=== PATIENT | female | born 1940 | race Caucasian/White ===

== ENCOUNTER → 2016-07-08 | Outpatient (CLI) | payer OTHER | LOC: LAB 09:25 | PROVIDERS: ATTEND Physician Assistant Medical | DX: N30.01 Acute cystitis with hematuria (principal); R30.0 Dysuria; R82.99 Other abnormal findings in urine | CPT/HCPCS: 87077; 87088; 87186 ==

== ENCOUNTER → 2016-10-23 | Outpatient (CLI) | payer OTHER | LOC: LAB 09:38 | PROVIDERS: ATTEND Physician Assistant Medical | DX: R30.0 Dysuria (principal); M79.641 Pain in right hand; R82.99 Other abnormal findings in urine | CPT/HCPCS: 85652; 86038; 87077; 87088; 87186 ==

== ENCOUNTER → 2017-01-05 | Outpatient (CLI) | payer OTHER ==
[2017-01-05 15:56] LABS: BUN/CREATININE RATIO 34.44 (6-20); CALCIUM 9.3 mg/dL (8.7-10.7)
== END ==
LOC: LAB 10:19
PROVIDERS: ATTEND Physician Assistant Medical
DX: R80.9 Proteinuria, unspecified (principal); I10 Essential (primary) hypertension
CPT/HCPCS: 80048

== ENCOUNTER 2018-06-15 14:04 | Inpatient (IN) ==
[2018-06-15] MEDS ORDERED: ASPIRIN 81 MG (BABY) CHEWABLE TABLET PO ONE (14:35)
--- NOTE | 2018-06-15 14:39 | EKG ---
[address] [address] Measurements Intervals [place] Rate: 54 P: -20 IN: 194 QRS: -56 QRSD: 123 T: 54 QT: 462 QTc: 447 Interpretive Statements SINUS BRADYCARDIA LEFT ANTERIOR HEMIBLOCK INTRAVENTRICULAR CONDUCTION DELAY No previous ECG available for comparison Electronically Signed On 06-15-18 17:17:59 MST by Vikas Means [email or web address]
--- NOTE | 2018-06-15 14:41 | PDOC ---
Chest Pain HPI - General Chief Complaint: Chest Pain Stated Complaint: SOB, CHEST PAIN Date Seen by Provider: 06/15/18 Time Seen by Provider: 14:19 Source: Patient Exam Limitations: POSITIVE: No limitations Treatment Prior to Arrival: REPORTS: Aspirin (patient took one baby aspirin prior to arrival) Nurse's Notes Reviewed & Considered: Yes - History of Present Illness Initial Comments: Patient presents to ED with complaint of shortness of breath and chest pains. Patient states her symptoms have been going on for 2 days. Her main complaint is shortness of breath and this has been constant. Her chest pains are intermittent and lasting seconds to minutes. She had one episode of pain earlier today. Denies associated fever. Denies cough. 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 Reports recently being treated with a zpack which she finished 2 days ago. She did take one tablet of aspirin earlier today. - Patient Home Medications Home Medications: Home Medications Aspirin 81 mg PO DAILY tab 12/14/12 Allopurinol 1 tab PO QD PRN tab 12/18/15 levothyroxine 150 mcg tablet 150 mcg PO QDAY #90 tab 11/26/17 atorvastatin 40 mg tablet 40 mg PO QHS tab 01/12/18 meloxicam 7.5 mg tablet 7.5 mg PO DAILY #30 tab 01/12/18 oxybutynin chloride ER 5 mg tablet,extended release 24 hr 5 mg PO QDAY #30 tab 01/12/18 paroxetine 10 mg tablet 10 mg PO QDAY 05/18/18 losartan 100 mg tablet 100 mg PO QDAY #30 tab 06/07/18 flurazepam 15 mg capsule 15 mg PO QHS PRN #30 cap 06/10/18 Metoprolol Tartrate 12.5 mg PO BID 06/15/18 - Patient Allergies Allergies/Adverse Reactions: Allergies Allergy/AdvReac Type Severity Reaction Status Date / Time sulfamethoxazole Allergy ITCHING Verified 06/15/18 14:07 [From Bactrim] trimethoprim [From Bactrim] Allergy ITCHING Verified 06/15/18 14:07 Past Medical History - heen HEENT History: Cataracts, Dentures/Partials Cardiovascular History: Hypertension, Hyperlipidemia Additional Cardiovasular History: HAD CHEST PAIN IN 2005/GOT STENT. NO FURTHER EPISODES OF C.P. Respiratory History: Sleep Apnea, Home CPAP Use Additional Respiratory History: HAD HOME OXYGEN AT NIGHT BUT WAS TAKEN OFF [address] LEMA/PINKY. Gastrointestinal History: Denies History Genitourinary History: Denies History Additional Genitourinary History: TOO MUCH PROTEIN IN BODY. Endocrine History: Hypothyroidism, Other (please comment) Additional Endocrine History: GRAVES DISEASE Musculoskeletal History: Arthritis, Carpal Tunnel Prosthesis or Implant: No Neurological History: Frequent Headaches Blood Disorders: Denies History Psychiatric History: Depression Additional Psychiatric History: WAS ON DEPRESSION MEDICATION UNTIL 2009. THEN GOT SICK AND WAS TAKEN OFF MANY OF HER MEDICATION History of Sexually Transmitted Diseases: No Cancer History: Denies History History of MDRO: No History of Other Communicable Diseases: No Alcohol Use: Rarely In the Past 12 Months, Have Used or Abuse Any Substance: None Previous Surgical History: Yes Type / Date of Surgery: C-SECTIONS X3, MIKE, RUPTURED LIVER, APPY, TONSILS, BILAT CTR, CATARACTS, HEART STENTS, PARTIAL HYST. Anesthesia Reactions: Yes (NAUSEA) Malignant Hyperthermia: No Chest Pain Progress - Results Reviewed by me Xrays/CTs/US Reviewed by me: Yes Discussed with Radiologist: No Radiology Findings: CT chest shows NO PE, CHF exacerbation, pulmonary artery hypertension, small bilateral pleural effusions, coronary artery disease with dense calcifications in LAD & Left circumflex. Lab Results Reviewed by Me: Yes CBC and BMP: 06/15/18 14:30 06/15/18 14:30 Lab Results:: Laboratory Results 06/15/18 06/15/18 06/15/18 14:20 14:30 14:30 WBC 6.21 RBC 4.72 Hgb 14.5 Hct 44.1 MCV 93.4 MCH 30.7 MCHC 32.9 L RDW Std Deviation 51.2 H RDW Coeff of Kavon 15.1 H Plt Count 225 MPV 10.4 Immature Gran % (Auto) 0.2 Neut % (Auto) 64.3 Lymph % (Auto) 24.8 [place]lin % (Auto) 6.8 Eos % (Auto) 3.4 Baso % (Auto) 0.5 Immature Gran # (Auto) 0.01 Neut # (Auto) 4.00 Lymph # (Auto) 1.54 Hamlin # (Auto) 0.42 Eos # (Auto) 0.21 Baso # (Auto) 0.03 WBC Morphology Comment Normal morphology Plt Morphology Comment Normal morphology RBC Morph Comment Normal morphology PT 11.8 H INR 1.14 D-Dimer 0.72 H VBG pH 7.45 H VBG pCO2 41 L VBG HCO3 28 H VBG Base Excess 4 H Sodium Potassium Chloride Carbon Dioxide Anion Gap BUN Creatinine BUN/Creatinine Ratio Glucose Calculated Osmolality Calcium Total Bilirubin AST ALT Alkaline Phosphatase CK-MB (CK-2) Troponin I C-Reactive Protein NT-Pro-B Natriuret Pep Total Protein Albumin Globulin Albumin/Globulin Ratio 06/15/18 06/15/18 06/15/18 14:30 14:30 14:30 WBC RBC Hgb Hct MCV MCH MCHC RDW Std Deviation RDW Coeff of Kavon Plt Count MPV Immature Gran % (Auto) Neut % (Auto) Lymph % (Auto) Hamlin % (Auto) Eos % (Auto) Baso % (Auto) Immature Gran # (Auto) Neut # (Auto) Lymph # (Auto) Hamlin # (Auto) Eos # (Auto) Baso # (Auto) WBC Morphology Comment Plt Morphology Comment RBC Morph Comment PT INR D-Dimer VBG pH VBG pCO2 VBG HCO3 VBG Base Excess Sodium 138 Potassium 4.7 Chloride 105 Carbon Dioxide 30 Anion Gap 3 L BUN 16 Creatinine 0.6 BUN/Creatinine Ratio 26.66 H Glucose 89 Calculated Osmolality 285.0 Calcium 9.0 Total Bilirubin 1.0 AST 55 H ALT 53 H Alkaline Phosphatase 64 CK-MB (CK-2) 1.27 Troponin I < 0.012 C-Reactive Protein < 0.5 NT-Pro-B Natriuret Pep 2170 H Total Protein 6.5 Albumin 3.7 Globulin 2.8 Albumin/Globulin Ratio 1.30 EKG Interpreted/Reviewed By Me:: Yes EKG Interpretation:: POSITIVE: Abnormal EKG (Sinus bradycardia at 54 bpm with left axis deviation, Q waves in leads V1 & V2), Previous EKG Reviewed - Patient's Progress Pain Medication Addressed: POSITIVE: Not Applicable School/Work Release Addressed: POSITIVE: Not Applicable Re-Examine Comment: CXR was obtained and shows right sided pleural effusion, cardiomegaly, elevated right hemidiaphragm with questionable right hilar mass. CT recommended. Patient also has elevated d.dimer therefore will get chest CT. Re-Examine Comment: Patient given oral nitroglycerin and this helped with her hypertension. She developed a headache from this medication and was given tylenol for her headache. Re-Examine Comment: Patient given lasix for her CHF exacerbation and was placed on oxygen because her oxygen saturations were 88-90 on room air. I recommended she be admitted for diuresis and oxygen therapy. Patient's case was discussed with Dr. Gamble and admitted to medical service in stable and unchanged condition. Status: POSITIVE: Unchanged MDM / ED Course: Patient presents to ED with complaints of shortness of breath, elevated blood pressure, and headache. Patient did take her blood pressure medications this morning. Patient does not wear oxygen at home. She does not smoke but used to smoke and has had longstanding history of 2nd hand smoke exposure. Gave patient aspirin for her chest pain, which she currently doesn't have but did have momentarily earlier today. She did take 81 mg of aspirin earlier today. She is most worried about her elevated blood pressure and her difficulty breathing. Quality Measure Initiative: CP/AMI: POSITIVE: EKG, ASA - Consult Consult (If Yes, Name of Consulting MD & Time Called): Yes (Dr. Gamble) Consulting MD will see pt:: POSITIVE: [facility] Admit Counseled: POSITIVE: Patient, Family, RE: Lab Results, RE: Radiology Results, RE: DX Patient Care Time - Estimated PCT Patient Care Time (In Minutes): 80 Vital Signs - Recent Vital Signs Vital Signs: Vital Signs (Last 8 hours) Temp Pulse Resp BP Pulse Ox 06/15/18 16:46 51 L 17 201/75 98 06/15/18 16:14 50 L 16 205/85 96 06/15/18 15:05 17 211/79 94 06/15/18 14:30 97.6 F 55 L 20 152/110 90 - VS Reviewed Vital Signs Reviewed: Yes Discharge Clinical Impression: CHF exacerbation, Hypertensive urgency, Headache, Dyspnea, Acute hypoxemic respiratory failure Discharge Disposition: Admit to Inpatient Condition: Fair Follow Up With: MUSHTAQ ARAIZA [Primary Care Provider] - Care Transferred To: Dr. Gamble Date Decision to Admit to Inpatient: 06/15/18 Time Decision to Admit to Inpatient: 17:35
[2018-06-15 14:43] LABS: BASOPHILS # (AUTO) 0.03 10*3/UL; BASOPHILS % (AUTO) 0.5 % (0-1); EOSINOPHILS # (AUTO) 0.21 10*3/UL; EOSINOPHILS % (AUTO) 3.4 % (0-8); Hematocrit [HCT] 44.1 % (37.0-47.0); Hemoglobin [HGB] 14.5 g/dL (12.0-16.0); LYMPHOCYTES # (AUTO) 1.54 10*3/uL; MEAN CORPUSCULAR HEMOGLOBIN 30.7 PG (27-31); MEAN CORPUSCULAR HGB CONC 32.9 g/dL (33-37); MEAN CORPUSCULAR VOLUME 93.4 FL (81-99); MEAN PLATELET VOLUME 10.4 FL (7.4-12.2); MONOCYTES # (AUTO) 0.42 10*3/UL (0.3-0.8); MONOCYTES % (AUTO) 6.8 % (5-15); NEUTROPHILS % (AUTO) 64.3 % (50-80); RED BLOOD COUNT 4.72 10^6/uL (4.20-5.40)
[2018-06-15 14:46] LABS: PLATELET MORPHOLOGY COMMENT NORMAL MORPHOLOGY (NORM); RBC MORPHOLOGY COMMENT NORMAL MORPHOLOGY (NORM); WBC MORPHOLOGY COMMENT NORMAL MORPHOLOGY (NORM)
[2018-06-15 14:52] LABS: BLOOD UREA NITROGEN 16 mg/dL (7-22); BUN/CREATININE RATIO 26.66 (6-20); SERUM ALBUMIN 3.7 g/dL (3.5-4.8)
[2018-06-15 15:19] LABS: VENOUS PH 7.45 (7.32-7.42)
[2018-06-15] MEDS ORDERED: NITROGLYCERIN 0.4 MG SL TAB (BOTTLE OF 3) SL ONE (15:20)
[2018-06-15] MEDS ORDERED: ACETAMINOPHEN 500 MG TABLET PO ONE (15:34)
--- NOTE | 2018-06-15 16:15 | DI ---
AP CHEST X-RAY, 06/15/2018 2:36 PM : Clinical History: Chest pain. Previous Exam: None at this facility. Soft Tissues: No acute soft tissue abnormality. Bones: Normal. Heart: There is cardiomegaly without CHF. Lungs: The right diaphragm is elevated and there is fluid in the minor fissure. Right lower lobe atel ectasis is present. Mediastinum: There is prominence of the right hilum and a hilar mass cannot be excluded. Nodules: No pulmonary nodules. Reading: Small right pleural effusion. Elevated right diaphragm with questionable right hilar mass. A CT scan with IV contrast is recommended to evaluate the right hilum, since a mass could involve the right phr enic nerve.
--- NOTE | 2018-06-15 17:22 | DI ---
CT CHEST SCAN WITH IV CONTRAST, 06/15/2018 4:12 PM : Clinical History: Dyspnea. Elevated D-dimer test. Hypoxia. Abnormal chest x-ray. Previous Exam: None at this facility. Technique: Scans from base of neck to lung bases with IV contrast. Non-MIPS and MIPS sagittal/coronal images generated. IV Contrast: 65 mL of Isovue 370. Base of Neck: Normal. Nodes: Normal axillary, supraclavicular, mediastinal, and hilar lymph nodes. Heart: There is dilatation of the left and right atria and the right ventricle. Very dense coronary a rtery calcifications are present in the proximal and middle thirds of the LAD and in the left circumf alessandra artery and scattered throughout the right coronary artery. Scans were initiated at 17 seconds pos tinjection and there is virtually no contrast in the left heart and aorta indicating low cardiac outp ut. Aorta: There is an aneurysm of the ascending aorta without dissection and the AP and transverse measu rements are 43 mm. Pulmonary Arteries: There is marked pulmonary arterial hypertension in the main pulmonary artery has AP and transverse measurements of 57 x 53 mm. The main right and left pulmonary arteries are dilated and the dilated right pulmonary artery accounts for the appearance of a right hilar mass on the chest x-ray. Because of the marked post-valvular dilatation of the pulmonary artery, pulmonic stenosis is a possibility. Lungs: No infiltrate or effusion. There is a very small left pleural effusion and a small right pleur al effusion with right lower lobe atelectasis. Mediastinum: No mediastinal mass is present. Nodules: None. Bony Structures: Normal visualized portions of ribs, sternum, scapulae, clavicles, and shoulders. Nor mal visualized portions of thoracic spine. Limited Upper Abdomen: Normal adrenal glands and spleen. Normal limited views of liver and pancreas READIN. There is no evidence of pulmonary embolism or pulmonary embolism with infarction. 2. Severe pulmonary arterial hypertension with the main pulmonary artery measuring 57 x 53 mm in AP and transverse diameters. Post pulmonic stenosis dilatation cannot be excluded. 3. No adenopathy noted. There is no right sided hilar or mediastinal mass. The appearance of a mass on the chest x-ray is secondary to the right pulmonary artery. 4. Very small left pleural effusion with a small right pleural effusion. This patient has low cardia c output and probably is in failure. 5. Coronary artery disease with dense calcifications in the LAD and left circumflex artery.
[2018-06-15] MEDS ORDERED: FUROSEMIDE 10 MG/1 ML - 4 ML IVP ONE (17:26)
[2018-06-15 18:38] VITALS: BP 201/75; RESP 17; TEMP 97.6; O2SAT 98
--- NOTE | 2018-06-15 19:24 | PDOC ---
HPI - History of Present Illness Date of Service: 06/15/18 Time of Service: 19:30 Chief Complaint: Shortness of breath of 2 days' duration History of Present Illness: This is a 77 years old female with medical history significant for history of hypertension, history of Graves' disease had radioiodine treatment before now on replacement, hyperlipidemia, history of coronary artery disease with previous stents who presented to the hospital with history of shortness of breath that has been going on for the last 2 days in addition she did report elevated blood pressure. She said the blood pressure elevation been going on for about a month. At one point she was admitted to the hospital in [place] they kept her overnight they told her that she had dehydration. They stopped her diuretic. She saw her primary who increased the of dosage the metoprolol to twice a day because of persistent elevation in her blood pressure . Today her blood pressure was elevated like 190 systolic. She was on amlodipine and that was discontinued because of swelling in her legs. She started to have shortness of breath worse with exertion. She said she walk small distances and then she would feel short of breath. A week ago she was able to walk more. 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 She did report some chest pain but this been going on for about 6 months and infrequent maybe once a week. [place] in the anterior chest last for a few minutes she doesn't need to rest. She doesn't take nitroglycerin. Does not remind her of the pain that she had when she had a heart attack. Because of all the symptoms came into the ER evaluation revealed elevated BNP, pleural effusions on the CT she was given Lasix and was admitted. Her blood pressure was elevated when she came in. Currently she said she feels better symptoms of shortness of breath no chest pain now. She denied orthopnea and denied PND's. She still have some swelling in her legs. Past Medical History Medical History: 1. Hypertension. 2. Graves' disease status post radioiodine treatment. 3. History of coronary artery disease with previous stents. 4. Hyperlipidemia Surgical History: 1. History of cholecystectomy. 2. History of hysterectomy. 3. History of for a . 4. History of for tonsillectomy Family History: Reviewed an Not Pertinent Past Social History: She used to smoke quit many years ago, doesn't drink no drugs. Lives in [place]. Tobacco Use: Former Smoker In the Past 12 Months, Have Used or Abuse Any of the Following Substance: None Medication / Allergies Home Medications: Home Medications Medication Instructions Recorded Confirmed Type Aspirin 81 mg PO DAILY tab 12/14/12 06/15/18 History Allopurinol 1 tab PO QD PRN tab 12/18/15 06/15/18 History levothyroxine 150 mcg tablet 150 mcg PO QDAY #90 tab 11/26/17 06/15/18 Rx atorvastatin 40 mg tablet 40 mg PO QHS tab 01/12/18 06/15/18 History meloxicam 7.5 mg tablet 7.5 mg PO DAILY #30 tab 01/12/18 06/15/18 Rx oxybutynin chloride ER 5 mg 5 mg PO QDAY #30 tab 01/12/18 06/15/18 Rx tablet,extended release 24 hr paroxetine 10 mg tablet 10 mg PO QDAY 05/18/18 06/15/18 History losartan 100 mg tablet 100 mg PO QDAY #30 tab 06/07/18 06/15/18 Rx flurazepam 15 mg capsule 15 mg PO QHS PRN #30 cap 06/10/18 06/15/18 Rx Metoprolol Tartrate 12.5 mg PO BID 06/15/18 06/15/18 History Allergies/Adverse Reactions: Allergies Allergy/AdvReac Type Severity Reaction Status Date / Time sulfamethoxazole Allergy ITCHING Verified 06/15/18 14:07 [From Bactrim] trimethoprim [From Bactrim] Allergy ITCHING Verified 06/15/18 14:07 Review of Systems - Review of Systems All Systems: Reviewed & No Additional Complaints Except as Stated Exam - Vitals Vital Signs: Vital Signs Temperature 97.6 F Temperature Source Temporal Artery Scan Pulse Rate [Pulse Oximeter 51 Right] Pulse Rate 50 Respiratory Rate 22 Blood Pressure [Left Radial 201/75 Artery] Blood Pressure 210/96 Pulse Ox 95 Oxygen Delivery Method Nasal Cannula Height 5 ft 2 in Weight 170 lb 9.6 oz - General General Appearance: No Acute Distress - Head Head Exam: Normal Inspection - Eye Eye Exam: POSITIVE: Normal Appearance - ENT ENT Exam: POSITIVE: Normal Exam - Neck Neck Exam: Normal Inspection - Respiratory Respiratory Exam: POSITIVE: Clear to Auscultation - Bilaterally - Cardiovascular Cardiovascular Exam: POSITIVE: RRR, Diastolic Murmur - GI/Abdominal GI/Abdominal Exam: POSITIVE: Normal Bowel Sounds, Non Tender, Non Distended, Soft, No Organomegaly - Rectal Rectal Exam: POSITIVE: Deferred - External Exam: POSITIVE: Deferred - Extremities Extremities Exam: POSITIVE: +1 Edema - Back Back Exam: POSITIVE: Normal Inspection - Neurological Neurological Exam: POSITIVE: Alert, Oriented x 3, CN II-XII Intact, No Facial Droop, Speech Intact / Clear, Moves All Extremities Equally - Psychiatric Psychiatric Exam: POSITIVE: Normal Affect - Integumentary Integumentary Exam: POSITIVE: Normal Color Results - Labs CBC and BMP: 06/15/18 14:30 06/15/18 14:30 - EKG Data -: EKG Interpreted by Me Rate: Bradycardia EKG Shows Normal: Sinus Rhythm - EKG Data When Compared to Previous EKG(s) There Are: Other (EKG showed sinus bradycardia with left anterior hemiblock) - Imaging Status: Report Reviewed by Me (CT chest 1. There is no evidence of pulmonary embolism or pulmonary embolism with infarction. 2. Severe pulmonary arterial hypertension with the main pulmonary artery measuring 57 x 53 mm in AP and transverse diameters. Post pulmonic stenosis dilatation cannot be excluded. 3. No adenopathy noted. There is no right sided hilar or mediastinal mass. The appearance of a mass on the chest x-ray is secondary to the right pulmonary artery. 4. Very small left pleural effusion with a small right pleural effusion. This patient has low cardiac output and probably is in failure. 5. Coronary artery disease with dense calcifications in the LAD and left circumflex artery.) Assessment and Plan - Patient Problems (1) CHF exacerbation Current Visit: Yes Status: Acute Comment: Symptoms suggest heart failure. Unknown type. She did receive Lasix will continue with Lasix. Continue with losartan and metoprolol. Will try to get records from her health center manager in [place] and see when was the last time she had an echo and the findings then. I did order an ECH But I don't think they will be able to do it until Thursday Code(s): I50.9 - Heart failure, unspecified (2) Hypertensive urgency Current Visit: Yes Status: Acute Comment: Blood pressure is elevated. Continue with the previous medications in addition to the Lasix. We'll start her on hydralazine and consider increasing the dosage depending on her response. May switch to Coreg once she is more diuresed. Code(s): I16.0 - Hypertensive urgency (3) Acquired hypothyroidism Current Visit: No Status: Acute Onset Date: 03/04/12 Comment: Same med will check her TSH. Code(s): E03.9 - Hypothyroidism, unspecified (4) Hyperlipidemia Current Visit: No Status: Chronic Comment: Same med Code(s): E78.5 - Hyperlipidemia, unspecified (5) Chest pain Current Visit: Yes Status: Acute Comment: Does not look anginal. Will get records and will repeat her enzymes. Code(s): R07.9 - Chest pain, unspecified
[2018-06-15] MEDS ORDERED: LIDOCAINE W/ SODIUM BICARB 0.5 ML SYR SUBD PRN (19:25)
[2018-06-15] MEDS: FUROSEMIDE 10 MG/1 ML - 4 ML IVP SCH (19:48)
[2018-06-15] MEDS ORDERED: CARVEDILOL 3.125 MG TABLET PO SCH (21:00)
[2018-06-15] MEDS ORDERED: FLURAZEPAM HCL 15 MG PO PRN (21:00)
[2018-06-15] MEDS: Metoprolol TARTRATE Tab 25 MG TAB PO SCH (21:01)
[2018-06-15] MEDS: HYDRALAZINE 10 MG TABLET PO SCH (21:01)
[2018-06-15] MEDS: ATORVASTATIN 40 MG TABLET PO SCH (21:01)
[2018-06-16] MEDS ORDERED: HYDRALAZINE 10 MG TABLET PO ONE (01:06)
[2018-06-16] MEDS: LEVOTHYROXINE 75 MCG TABLET PO SCH (04:35)
[2018-06-16 05:50] LABS: BLOOD UREA NITROGEN 21 mg/dL (7-22)
[2018-06-16] MEDS: FUROSEMIDE 10 MG/1 ML - 4 ML IVP SCH ×2 (07:31→16:56)
[2018-06-16] MEDS: Metoprolol TARTRATE Tab 25 MG TAB PO SCH ×2 (09:32→22:04)
[2018-06-16] MEDS: PARoxetine Tab 20 MG TAB PO SCH (09:32)
[2018-06-16] MEDS: ALLOPURINOL 300 MG TABLET PO SCH (09:33)
[2018-06-16] MEDS: ASPIRIN 81 MG (BABY) CHEWABLE TABLET PO SCH (09:33)
[2018-06-16] MEDS: HYDRALAZINE 10 MG TABLET PO SCH ×3 (09:33→22:03)
[2018-06-16] MEDS: LOSARTAN 50 MG TABLET PO SCH (09:33)
--- NOTE | 2018-06-16 10:12 | PDOC(PROG) ---
Date of Service: 06/16/18 Time of Service: 10:15 Interval History: Subjective She feels better today compared to yesterday. Her breathing is better. She is denying chest pain today. No headaches. Objective : Data - Labs CBC and BMP: 06/15/18 14:30 06/16/18 04:40 Objective : Exam - General General Appearance: No Acute Distress, Cooperative - Head Head Exam: Normal Inspection - Eye Eye Exam: Normal Appearance - ENT ENT Exam: Normal Exam - Neck Neck Exam: Normal Inspection - Respiratory Additional Respiratory Exam Details: Decreased breath sound at the bases more on the right side compared to the left - Cardiovascular Cardiovascular Exam: RRR, Diastolic Murmur - GI/Abdominal GI/Abdominal Exam: Normal Bowel Sounds, Non Tender, Non Distended, Soft, No Organomegaly - Rectal Rectal Exam: Deferred - External Exam: Deferred Exam: Deferred - Extremities Extremities Exam: Normal Inspection - Back Back Exam: Normal Inspection - Neurological Neurological Exam: Alert, Oriented x 3, CN II-XII Intact, No Facial Droop, Speech Intact / Clear - Psychiatric Psychiatric Exam: Normal Affect - Integumentary Integumentary Exam: Normal Color Assessment and Plan - Patient Problems (1) CHF exacerbation Current Visit: Yes Status: Acute Comment: This may be secondary to valve issue. As she has a diastolic murmur of aortic regurg. I think we'll continue with the Lasix will add some potassium. Continue with losartan and metoprolol. I did add hydralazine for blood pressure control. We still did not get the records from [facility]. I did call Dr. Ordoñez though he will call me back he said after reviewing her records. Code(s): I50.9 - Heart failure, unspecified (2) Hypertensive urgency Current Visit: Yes Status: Acute Comment: I think we'll continue with the current plan. We may adjust the dosage gradually of the hydralazine. Code(s): I16.0 - Hypertensive urgency (3) Acquired hypothyroidism Current Visit: No Status: Acute Onset Date: 03/04/12 Comment: Same med Code(s): E03.9 - Hypothyroidism, unspecified (4) Hyperlipidemia Current Visit: No Status: Chronic Comment: Same med Code(s): E78.5 - Hyperlipidemia, unspecified (5) Chest pain Current Visit: Yes Status: Acute Comment: Seems to be resolved, enzymes and negative. Does not sound anginal. Code(s): R07.9 - Chest pain, unspecified
[2018-06-16] MEDS: Potassium Chloride Tab 10 MEQ TAB PO SCH ×2 (10:21→22:03)
[2018-06-16] MEDS: ATORVASTATIN 40 MG TABLET PO SCH (22:03)
[2018-06-17] MEDS: LEVOTHYROXINE 75 MCG TABLET PO SCH (04:51)
[2018-06-17 05:59] LABS: BLOOD UREA NITROGEN 39 mg/dL (7-22); BUN/CREATININE RATIO 43.33 (6-20); SERUM ALBUMIN 3.4 g/dL (3.5-4.8)
[2018-06-17] MEDS ORDERED: FUROSEMIDE 10 MG/1 ML - 4 ML IVP SCH (09:00)
[2018-06-17] MEDS ORDERED: ENOXAPARIN SODIUM 40 MG/0.4 ML SYRINGE SUBCUT SCH (09:00)
--- NOTE | 2018-06-17 09:26 | PDOC(PROG) ---
Date of Service: 06/17/18 Time of Service: 09:30 Interval History: Subjective She is denying new symptoms. Breathing seems to be better. Swelling in the legs also improved. Objective : Data - Labs CBC and BMP: 06/15/18 14:30 06/17/18 05:02 Objective : Exam - General General Appearance: No Acute Distress, Cooperative - Head Head Exam: Normal Inspection - Eye Eye Exam: Normal Appearance - ENT ENT Exam: Normal Exam - Neck Neck Exam: Normal Inspection - Respiratory Additional Respiratory Exam Details: Decreased breath sound the bases otherwise clear - Cardiovascular Cardiovascular Exam: RRR, Systolic Murmur, Diastolic Murmur - GI/Abdominal GI/Abdominal Exam: Normal Bowel Sounds, Non Tender, Non Distended, Soft, No Organomegaly - Rectal Rectal Exam: Deferred - External Exam: Deferred - Extremities Extremities Exam: Normal Inspection - Back Back Exam: Normal Inspection - Neurological Neurological Exam: Alert - Psychiatric Psychiatric Exam: Normal Affect Assessment and Plan - Patient Problems (1) CHF exacerbation Current Visit: Yes Status: Acute Comment: Seem to be improving. May be secondary to valve issue. I did speak with Dr. Ordoñez he suggested to continue the same plan. The echo that she had May this year showed aortic insufficiency and it worsened from mild to moderate to moderate. There is aortic sclerosis with mild aortic stenosis. Ejection fraction was 64% the aorta is dilated at 4 cm. Will ask then to walk her around check her sats and see how she feels and then will decide about realsing her or keeping her in the hospital . Code(s): I50.9 - Heart failure, unspecified (2) Hypertensive urgency Current Visit: Yes Status: Acute Comment: The blood pressure numbers overall better than before. However she had a high number this morning compared to the earlier morning. I think I'll increase the hydralazine. Continue the Lasix but will switch it to once a day. Continue losartan. I'll check on her in the afternoon she wants to go home and then will see what's her number then I will decide about keeping her or relasing her. She need follow-up with the cardiology to have another echocardiogram and may be a stress test. Code(s): I16.0 - Hypertensive urgency (3) Acquired hypothyroidism Current Visit: No Status: Acute Onset Date: 03/04/12 Comment: Same med Code(s): E03.9 - Hypothyroidism, unspecified (4) Hyperlipidemia Current Visit: No Status: Chronic Comment: Same med Code(s): E78.5 - Hyperlipidemia, unspecified (5) Chest pain Current Visit: Yes Status: Acute Comment: Seems nonanginal, may need a stress test later on done as an outpatient to complete the workup. Code(s): R07.9 - Chest pain, unspecified
[2018-06-17] MEDS: Metoprolol TARTRATE Tab 25 MG TAB PO SCH (09:36)
[2018-06-17] MEDS: ALLOPURINOL 300 MG TABLET PO SCH (09:37)
[2018-06-17] MEDS: PARoxetine Tab 20 MG TAB PO SCH (09:37)
[2018-06-17] MEDS: LOSARTAN 50 MG TABLET PO SCH (09:37)
[2018-06-17] MEDS: ASPIRIN 81 MG (BABY) CHEWABLE TABLET PO SCH (09:37)
[2018-06-17] MEDS: Potassium Chloride Tab 10 MEQ TAB PO SCH (09:37)
--- NOTE | 2018-06-17 12:21 | DCSUMMARY ---
Hospitalization Summary Admit Date: 06/15/2018 Discharge Date: 06/17/18 Hospital Course: Discharge diagnoses 1. CHF 2. Moderate Aortic regurgitation on a previous echocardiogram this year 3. Mild aortic stenosis/sclerosis on an echocardiogram done October of this year 4. Hypertensive urgency 5. History of Graves' disease status post radioiodine treatment now on replacement 6. History of coronary artery disease with previous stents 7. History of hyperlipidemia 8. Small bilateral effusions likely secondary to CHF 9. Severe pulmonary hypertension 10. Dense calcification of the coronary artery Hospital course This is a 77 years old female with medical history significant for history of hypertension, history of Graves' disease had radioiodine treatment in the past now levothyroxine replacement, hyperlipidemia and history of coronary artery disease with previous stents who presented to the hospital with history of shortness of breath that is being going on for 2 days before admission in addition she did report elevated blood pressure that's been going on for about a month. At one point she was admitted to [facility] and kept her overnight and she was told that she had dehydration. She was on a diuretic and apparently that was discontinued. Her primary did increase the dosage of her metoprolol to twice a day because of uncontrolled blood pressure. She was also on amlodipine and that was discontinued because of swelling her legs. The day she presented her blood pressure was elevated in the 190s systolics and because of the symptoms and elevated blood pressure she came into the ER. Evaluation revealed elevated BNP and CT evidence of bilateral effusions smaller on the left compared to the right. She was given Lasix and admitted for congestive heart failure. Exam when I saw her was remarkable for presence of combined systolic and diastolic murmur suggesting aortic regurgitation. Blood pressure was elevated we added hydralazine to her blood pressure medication that included losartan and metoprolol. We also continued with IV Lasix. Gradually there was improvement in her symptoms. On the day of discharge she felt better she walked around and her saturation remained acceptable more than 90 without needing to be on oxygen. Blood pressure also d ecreased with the adjustment of medications. I did speak with her extension forester Dr Ordoñez and let him know about her admission. I Did obtain a record of the echocardiogram that she had had this year and it showed moderate aortic regurgitation. Ejection fraction was normal. She has an appointment again with Dr. Ordoñez on June 30. I think she need to follow up with them have more more testing done including echocardiogram and the stress test. While she was here we did not have echocardiogram services. I think she can be discharged home continue her usual medication with the addition of for Lasix and hydralazine. She need to write her blood pressure numbers down and follow-up with her primary in addition to the extension forester. Laboratory Results 06/17/18 05:02 Sodium 139 Potassium 4.4 Chloride 99 Carbon Dioxide 33 Anion Gap 7 BUN 39 H Creatinine 0.9 BUN/Creatinine Ratio 43.33 H Glucose 96 Calculated Osmolality 296.0 H Calcium 9.5 Total Bilirubin 0.6 AST 28 ALT 50 Alkaline Phosphatase 59 NT-Pro-B Natriuret Pep 1850 H Total Protein 5.9 L Albumin 3.4 L Globulin 2.5 Albumin/Globulin Ratio 1.30 Discharge suction Diet low-salt Activity as tolerated Medications Current Medication(s) Medication Instructions Recorded Confirmed Type Aspirin 81 mg PO DAILY tab 12/14/12 06/15/18 History Allopurinol 1 tab PO QD PRN tab 12/18/15 06/15/18 History levothyroxine 150 mcg tablet 150 mcg PO QDAY #90 tab 11/26/17 06/15/18 Rx atorvastatin 40 mg tablet 40 mg PO QHS tab 01/12/18 06/15/18 History meloxicam 7.5 mg tablet 7.5 mg PO DAILY #30 tab 01/12/18 06/15/18 Rx paroxetine 10 mg tablet 10 mg PO QDAY 05/18/18 06/15/18 History losartan 100 mg tablet 100 mg PO QDAY #30 tab 06/07/18 06/15/18 Rx flurazepam 15 mg capsule 15 mg PO QHS PRN #30 cap 06/10/18 06/15/18 Rx Furosemide [Lasix] 40 mg PO DAILY #30 tab 06/17/18 Rx Metoprolol Tartrate Tab 25 mg PO BID tab 06/17/18 Rx [Lopressor Tab] Potassium Chloride [Klor-Con] 10 meq PO DAILY #30 tab 06/17/18 Rx hydrALAZINE Tab [Apresoline Tab] 25 mg PO TID #60 tab 06/17/18 Rx Follow-up with PCP in 1-2 weeks, with cardiology as scheduled on June 30 Condition at discharge stable for discharge Exam - Vitals Vital Signs: Vital Signs Temperature 97 F Temperature Source Temporal Artery Scan Pulse Rate [Pulse Oximeter 56 Right] Pulse Rate 48 Respiratory Rate 20 Blood Pressure [Left Arm] 150/56 Blood Pressure [Left Radial 201/75 Artery] Blood Pressure 210/96 Pulse Ox 91 Oxygen Flow Rate 1 Oxygen Delivery Method Room Air Height 5 ft 2 in Weight 165 lb 9.6 oz Patient Problems - Patient Problem List (1) CHF exacerbation Current Visit: Yes Status: Acute Code(s): I50.9 - Heart failure, unspecified Category: Medical (2) Hypertensive urgency Current Visit: Yes Status: Acute Code(s): I16.0 - Hypertensive urgency Category: Medical (3) Acquired hypothyroidism Current Visit: No Status: Acute Onset Date: 03/04/12 Code(s): E03.9 - Hypothyroidism, unspecified Category: Medical (4) Hyperlipidemia Current Visit: No Status: Chronic Code(s): E78.5 - Hyperlipidemia, unspecified Category: Medical (5) Chest pain Current Visit: Yes Status: Acute Code(s): R07.9 - Chest pain, unspecified Category: Medical
== END 2018-06-17 14:00 | disposition home or self-care (01) | DRG 293 ==
LOC: ER 14:04 → MED/SURG 18:38
PROVIDERS: ADMIT Internal Medicine; ATTEND Internal Medicine

== ENCOUNTER 2019-06-01 13:00 | Inpatient (IN) ==
[~2019-06-01 13:00] MED LIST: LIDOCAINE W/ SODIUM BICARB 0.5 ML SYR SUBD ONE; Lactated Ringers 1,000 ML PRIMARY IV ONE; Nasal Sanitizer POPSWAB ampule 3 AMP (Nozin) PREOP DOSE ENOS SCH; Vancomycin-PHA to Dose IV PRN; ceFAZolin Inj 2gm (Premix) 2 GM/50 ML BAG IV ONE
[2019-06-02] MEDS ORDERED: Lactated Ringers 1,000 ML PRIMARY IV ONE ×4 (06:00→22:21)
[2019-06-02] MEDS ORDERED: LIDOCAINE W/ SODIUM BICARB 0.5 ML SYR SUBD ONE (06:00)
[2019-06-02] MEDS ORDERED: ceFAZolin Inj 2gm (Premix) 2 GM/50 ML BAG IV ONE ×2 (06:00→11:57)
[2019-06-02] MEDS ORDERED: Nasal Sanitizer POPSWAB ampule 3 AMP (Nozin) PREOP DOSE ENOS SCH (06:00)
[2019-06-02] MEDS ORDERED: ACETAMINOPHEN 500 MG TABLET PO ONE ×2 (10:07→11:56)
[2019-06-02] MEDS ORDERED: PANTOPRAZOLE 20 MG TABLET.DR PO ONE ×2 (10:07→11:56)
[2019-06-02] MEDS ORDERED: CELECOXIB 200 MG CAPSULE PO ONE ×2 (10:07→11:56)
[2019-06-02] MEDS ORDERED: Gabapentin 600 MG TABLET PO ONE ×2 (10:07→11:56)
[2019-06-02] MEDS ORDERED: Sodium Chloride 0.9% 250 ML ONE (11:57)
[2019-06-02] MEDS ORDERED: LIDOCAINE W/ SODIUM BICARB 0.5 ML SYR ONE (11:57)
[2019-06-02] MEDS ORDERED: Vancomycin Inj 1.25gm vial IV ONE (11:57)
[2019-06-02 12:22] LABS: BILIRUBIN,URINE NEGATIVE (NEG); CLARITY,URINE CLOUDY (CLEAR); COLOR,URINE YELLOW (Y); GLUCOSE, URINE (UA) NEGATIVE (NEG); OCCULT BLOOD,URINE SMALL (NEG); PROTEIN,URINE >300 mg/dl (NEG); UROBILINOGEN,URINE 0.2 EU/dL (0.2)
[2019-06-02 12:28] LABS: BACTERIA,URINE MANY; URINE SAMPLE TYPE VOIDED SPECIMEN; WBC,URINE >100
[2019-06-02 13:56] LABS: BILIRUBIN,URINE NEGATIVE (NEG); CLARITY,URINE Slightly Cloudy (CLEAR); COLOR,URINE YELLOW (Y); GLUCOSE, URINE (UA) NEGATIVE (NEG); OCCULT BLOOD,URINE MODERATE (NEG); PROTEIN,URINE >300 mg/dl (NEG); UROBILINOGEN,URINE 0.2 EU/dL (0.2)
[2019-06-02 13:59] LABS: BACTERIA,URINE MANY; RBC,URINE 0 /hpf; SQUAMOUS EPITHELIAL CELL,UR FEW; URINE SAMPLE TYPE CATH SPECIMEN; WBC,URINE 80-100
[2019-06-02] MEDS ORDERED: cefTRIAXone 1 GM VIAL ONE (14:07)
[2019-06-02] MEDS ORDERED: Sodium Chloride 0.9% 100 ML IV ONE (14:08)
[2019-06-02] MEDS ORDERED: cefTRIAXone Inj 1 GM in Lidocaine Inj 1% 2.1 ML IM ONE (14:54)
[2019-06-02] MEDS ORDERED: cefTRIAXone Inj 1 GM in Sodium Chloride 0.9% 100 ML IV ONE (15:05)
[2019-06-02] MEDS ORDERED: fentaNYL Inj 250 MCG/5 ML VIAL ONE (15:19)
[2019-06-02] MEDS ORDERED: LIDOCAINE MPF 2% - 5 ML (20 MG/1 ML) ONE (15:19)
[2019-06-02] MEDS ORDERED: MIDAZOLAM 5 MG/1 ML ONE (15:19)
[2019-06-02] MEDS ORDERED: PROPOFOL 10 MG/1 ML (200 MG/20 ML) VIAL IV ONE ×4 (15:19→23:19)
[2019-06-02] MEDS ORDERED: REMIFENTANIL HCL 5 MG VIAL IV ONE ×2 (15:22→19:18)
[2019-06-02] MEDS ORDERED: Propofol 1,000 MG/100 ML VIAL IV ONE ×3 (15:25→21:00)
[2019-06-02] MEDS ORDERED: Sodium Chloride 0.9% vial 20 ML ONE (16:08)
[2019-06-02] MEDS ORDERED: Bacitracin Oint 14.2 gm tube 14 APPLIC/14.2 GM TUBE TOPICAL ONE (16:08)
[2019-06-02] MEDS ORDERED: Povidone-Iodine Ointment 28.35 gm ointment TOPICAL ONE (16:09)
[2019-06-02] MEDS ORDERED: BACITRACIN 50,000 UNIT VIAL IRRIG ONE (16:09)
[2019-06-02] MEDS ORDERED: THROMBIN (BOVINE) 20,000 UNIT KIT TOPICAL ONE ×2 (16:09→22:24)
[2019-06-02] MEDS ORDERED: DEXMEDETOMIDINE HCL 200 MCG/2 ML VIAL IV ONE (16:55)
[2019-06-02] MEDS ORDERED: KETAMINE 100 MG/1 ML - 5 ML ONE (17:06)
[2019-06-02] MEDS ORDERED: ONDANSETRON 4 MG/2 ML VIAL IVP PRN (18:16)
[2019-06-02] MEDS ORDERED: LIDOCAINE W/ SODIUM BICARB 0.5 ML SYR SUBD PRN (18:16)
[2019-06-02] MEDS ORDERED: HYDROmorphone 2 MG/1 ML IVP PRN (18:16)
[2019-06-02] MEDS ORDERED: ceFAZolin 1 GM VIAL ONE (22:10)
[2019-06-02] MEDS ORDERED: Vancomycin Inj 1gm vial ONE (23:13)
[2019-06-03] MEDS ORDERED: DEXAMETHASONE PF 10 MG/1 ML VIAL IVP ONE (00:30)
[2019-06-03] MEDS ORDERED: DEXAMETHASONE PF 10 MG/1 ML VIAL ONE (00:31)
[2019-06-03] MEDS ORDERED: LABETALOL 100 MG/20 ML (5 MG/1 ML) MDV ONE (00:42)
[2019-06-03] MEDS: LABETALOL 20 MG/4 ML (5 MG/1 ML) SYRINGE IVP ONE ×2 (00:43→01:04)
[2019-06-03] MEDS ORDERED: HYDROmorphone 2 MG/1 ML ONE (01:11)
[2019-06-03] MEDS ORDERED: Zolpidem Tab 5 MG TAB PO PRN (01:22)
[2019-06-03] MEDS ORDERED: HYDRALAZINE 20 MG/1 ML IVP PRN (01:22)
[2019-06-03] MEDS ORDERED: DOCUSATE 100 MG CAPSULE PO PRN (01:22)
[2019-06-03] MEDS ORDERED: CALCIUM CARBONATE 500 MG (TUMS) CHEWABLE TABLET PO PRN (01:22)
[2019-06-03] MEDS ORDERED: ACETAMINOPHEN 325 MG TABLET PO PRN (01:22)
[2019-06-03] MEDS ORDERED: LABETALOL 20 MG/4 ML (5 MG/1 ML) SYRINGE IVP PRN (01:22)
[2019-06-03] MEDS ORDERED: ONDANSETRON 4 MG/2 ML VIAL IVP PRN (01:22)
[2019-06-03] MEDS ORDERED: DIAZEPAM 10 MG/2 ML (5 MG/1 ML) CARPUJECT IVP PRN (01:22)
[2019-06-03] MEDS ORDERED: ALLOPURINOL 300 MG TABLET PO PRN (01:22)
[2019-06-03] MEDS ORDERED: Ondansetron ODT Tab 4 MG TAB PO PRN (01:22)
[2019-06-03] MEDS ORDERED: MORPHINE SULFATE 2 MG/1 ML IVP PRN ×2 (01:22)
[2019-06-03] MEDS: D5-1/2NS + 20mEq KCL 1,000 ML PRIMARY IV SCH ×2 (01:59→15:10)
[2019-06-03] MEDS: PARoxetine Tab 20 MG TAB PO SCH ×2 (01:59→08:26)
[2019-06-03] MEDS: ATORVASTATIN 40 MG TABLET PO SCH ×2 (01:59→20:57)
[2019-06-03] MEDS: FLURAZEPAM HCL 15 MG PO SCH ×2 (02:25→21:02)
[2019-06-03] MEDS: ceFAZolin Inj 1 GM in Sodium Chloride 0.9% 100 ML IV SCH ×2 (03:18→09:09)
[2019-06-03] MEDS: oxyCODONE-ACETAMINOPHEN 5-325 TAB PO PRN ×4 (04:28→22:02)
[2019-06-03] MEDS: LEVOTHYROXINE 50 MCG TABLET PO SCH (04:29)
[2019-06-03 04:41] LABS: BASOPHILS # (AUTO) 0.02 10*3/UL; BASOPHILS % (AUTO) 0.2 % (0-1); EOSINOPHILS # (AUTO) 0.02 10*3/UL; EOSINOPHILS % (AUTO) 0.2 % (0-8); Hematocrit [HCT] 37.5 % (37.0-47.0); LYMPHOCYTES # (AUTO) 0.53 10*3/uL; MEAN CORPUSCULAR VOLUME 96.2 FL (81-99); MEAN PLATELET VOLUME 10.2 FL (7.4-12.2); MONOCYTES # (AUTO) 0.13 10*3/UL (0.3-0.8); MONOCYTES % (AUTO) 1.4 % (5-15); NEUTROPHILS # (AUTO) 8.74 10*3/UL; NEUTROPHILS % (AUTO) 92.5 % (50-80)
[2019-06-03 04:47] LABS: PLATELET MORPHOLOGY COMMENT NORMAL MORPHOLOGY (NORM); RBC MORPHOLOGY COMMENT NORMAL MORPHOLOGY (NORM); WBC MORPHOLOGY COMMENT NORMAL MORPHOLOGY (NORM)
[2019-06-03 04:53] LABS: BLOOD UREA NITROGEN 22 mg/dL (7-22); BUN/CREATININE RATIO 24.44 (6-20)
[2019-06-03] MEDS: CYCLOBENZAPRINE 10 MG TABLET PO PRN ×2 (07:07→20:56)
[2019-06-03] MEDS: FUROSEMIDE 40 MG TABLET PO SCH (07:07)
[2019-06-03] MEDS: Metoprolol TARTRATE Tab 25 MG TAB PO SCH ×2 (08:26→20:57)
[2019-06-03] MEDS: LOSARTAN 50 MG TABLET PO SCH (08:26)
[2019-06-03] MEDS: Potassium Chloride Tab 10 MEQ TAB PO SCH (08:27)
[2019-06-03] MEDS: ARIPIPRAZOLE 2 MG PO SCH (09:10)
[2019-06-04] MEDS: LEVOTHYROXINE 50 MCG TABLET PO SCH (04:31)
[2019-06-04] MEDS: FUROSEMIDE 40 MG TABLET PO SCH (08:05)
[2019-06-04] MEDS: oxyCODONE-ACETAMINOPHEN 5-325 TAB PO PRN ×3 (08:25→20:12)
[2019-06-04] MEDS: PARoxetine Tab 20 MG TAB PO SCH (08:26)
[2019-06-04] MEDS: Metoprolol TARTRATE Tab 25 MG TAB PO SCH ×2 (08:26→20:13)
[2019-06-04] MEDS: LOSARTAN 50 MG TABLET PO SCH (08:26)
[2019-06-04] MEDS: Potassium Chloride Tab 10 MEQ TAB PO SCH (08:26)
[2019-06-04] MEDS: D5-1/2NS + 20mEq KCL 1,000 ML PRIMARY IV SCH ×2 (09:32→22:39)
[2019-06-04] MEDS: ARIPIPRAZOLE 2 MG PO SCH (09:36)
[2019-06-04] MEDS: cefTRIAXone Inj 2 GM in Sodium Chloride 0.9% 100 ML IV SCH (11:14)
[2019-06-04] MEDS: FLURAZEPAM HCL 15 MG PO SCH (20:11)
[2019-06-04] MEDS: ATORVASTATIN 40 MG TABLET PO SCH (20:12)
[2019-06-04] MEDS: CYCLOBENZAPRINE 10 MG TABLET PO PRN (20:12)
[2019-06-05] MEDS: LEVOTHYROXINE 50 MCG TABLET PO SCH (05:32)
[2019-06-05] MEDS: FUROSEMIDE 40 MG TABLET PO SCH (08:30)
[2019-06-05] MEDS: Metoprolol TARTRATE Tab 25 MG TAB PO SCH ×2 (08:30→20:13)
[2019-06-05] MEDS: PARoxetine Tab 20 MG TAB PO SCH (08:30)
[2019-06-05] MEDS: LOSARTAN 50 MG TABLET PO SCH (08:30)
[2019-06-05] MEDS: ARIPIPRAZOLE 2 MG PO SCH (08:31)
[2019-06-05] MEDS: Potassium Chloride Tab 10 MEQ TAB PO SCH (08:31)
[2019-06-05 09:53] LABS: BASOPHILS # (AUTO) 0.03 10*3/UL; BASOPHILS % (AUTO) 0.2 % (0-1); EOSINOPHILS # (AUTO) 0.23 10*3/UL; EOSINOPHILS % (AUTO) 1.7 % (0-8); Hematocrit [HCT] 35.2 % (37.0-47.0); Hemoglobin [HGB] 11.2 g/dL (12.0-16.0); LYMPHOCYTES # (AUTO) 1.25 10*3/uL; MEAN CORPUSCULAR HGB CONC 31.8 g/dL (33-37); MEAN CORPUSCULAR VOLUME 97.2 FL (81-99); MEAN PLATELET VOLUME 10.2 FL (7.4-12.2); MONOCYTES # (AUTO) 0.95 10*3/UL (0.3-0.8); MONOCYTES % (AUTO) 7.1 % (5-15); NEUTROPHILS # (AUTO) 10.98 10*3/UL; NEUTROPHILS % (AUTO) 81.6 % (50-80); RED BLOOD COUNT 3.62 10^6/uL (4.20-5.40)
[2019-06-05 09:54] LABS: PLATELET MORPHOLOGY COMMENT NORMAL MORPHOLOGY (NORM); RBC MORPHOLOGY COMMENT NORMAL MORPHOLOGY (NORM); WBC MORPHOLOGY COMMENT NORMAL MORPHOLOGY (NORM)
[2019-06-05] MEDS: cefTRIAXone Inj 2 GM in Sodium Chloride 0.9% 100 ML IV SCH (11:14)
[2019-06-05] MEDS: oxyCODONE-ACETAMINOPHEN 5-325 TAB PO PRN ×2 (14:28→22:42)
[2019-06-05] MEDS: ATORVASTATIN 40 MG TABLET PO SCH (20:13)
[2019-06-05] MEDS: FLURAZEPAM HCL 15 MG PO SCH (20:23)
[2019-06-06] MEDS: oxyCODONE-ACETAMINOPHEN 5-325 TAB PO PRN ×3 (04:47→20:56)
[2019-06-06 05:21] LABS: BASOPHILS # (AUTO) 0.04 10*3/UL; BASOPHILS % (AUTO) 0.3 % (0-1); EOSINOPHILS # (AUTO) 0.24 10*3/UL; EOSINOPHILS % (AUTO) 1.6 % (0-8); Hematocrit [HCT] 36.8 % (37.0-47.0); Hemoglobin [HGB] 11.7 g/dL (12.0-16.0); LYMPHOCYTES # (AUTO) 2.15 10*3/uL; MEAN CORPUSCULAR HGB CONC 31.8 g/dL (33-37); MEAN CORPUSCULAR VOLUME 98.1 FL (81-99); MEAN PLATELET VOLUME 10.5 FL (7.4-12.2); MONOCYTES # (AUTO) 0.94 10*3/UL (0.3-0.8); MONOCYTES % (AUTO) 6.1 % (5-15); NEUTROPHILS # (AUTO) 11.97 10*3/UL; NEUTROPHILS % (AUTO) 77.8 % (50-80); RED BLOOD COUNT 3.75 10^6/uL (4.20-5.40)
[2019-06-06 05:34] LABS: PLATELET MORPHOLOGY COMMENT NORMAL MORPHOLOGY (NORM); RBC MORPHOLOGY COMMENT NORMAL MORPHOLOGY (NORM); WBC MORPHOLOGY COMMENT NORMAL MORPHOLOGY (NORM)
[2019-06-06] MEDS: FUROSEMIDE 40 MG TABLET PO SCH (06:41)
[2019-06-06] MEDS: LOSARTAN 50 MG TABLET PO SCH (09:15)
[2019-06-06] MEDS: Metoprolol TARTRATE Tab 25 MG TAB PO SCH ×2 (09:16→20:34)
[2019-06-06] MEDS: PARoxetine Tab 20 MG TAB PO SCH (09:17)
[2019-06-06] MEDS: Potassium Chloride Tab 10 MEQ TAB PO SCH (09:17)
[2019-06-06] MEDS: ARIPIPRAZOLE 2 MG PO SCH (09:46)
[2019-06-06] MEDS: cefTRIAXone Inj 2 GM in Sodium Chloride 0.9% 100 ML IV SCH (10:13)
[2019-06-06] MEDS: D5-1/2NS + 20mEq KCL 1,000 ML PRIMARY IV SCH ×3 (16:55→18:27)
[2019-06-06] MEDS: NYSTATIN 100000 UNIT/1 ML - 5 ML UD CUP PO SCH ×2 (18:48→20:33)
[2019-06-06] MEDS: ATORVASTATIN 40 MG TABLET PO SCH (20:34)
[2019-06-06] MEDS: SULFAMETHOXAZOLE/TRIMETHOPRIM 800/160 MG TABLET PO SCH (20:34)
[2019-06-06] MEDS: FLURAZEPAM HCL 15 MG PO SCH (20:47)
[2019-06-07] MEDS: oxyCODONE-ACETAMINOPHEN 5-325 TAB PO PRN ×3 (00:42→10:23)
[2019-06-07] MEDS: LEVOTHYROXINE 50 MCG TABLET PO SCH (05:04)
[2019-06-07] MEDS: D5-1/2NS + 20mEq KCL 1,000 ML PRIMARY IV SCH ×2 (05:04→10:22)
[2019-06-07] MEDS: FUROSEMIDE 40 MG TABLET PO SCH (06:53)
[2019-06-07 07:18] LABS: BLOOD UREA NITROGEN 30 mg/dL (7-22); BUN/CREATININE RATIO 33.33 (6-20); SERUM ALBUMIN 2.7 g/dL (3.5-4.8)
[2019-06-07 08:35] VITALS: BP 138/47; RESP 16; TEMP 97.3; O2SAT 91
[2019-06-07] MEDS: NYSTATIN 100000 UNIT/1 ML - 5 ML UD CUP PO SCH (10:10)
[2019-06-07] MEDS: PARoxetine Tab 20 MG TAB PO SCH (10:11)
[2019-06-07] MEDS: Metoprolol TARTRATE Tab 25 MG TAB PO SCH ×2 (10:11→10:25)
[2019-06-07] MEDS: SULFAMETHOXAZOLE/TRIMETHOPRIM 800/160 MG TABLET PO SCH (10:11)
[2019-06-07] MEDS: LOSARTAN 50 MG TABLET PO SCH (10:12)
[2019-06-07] MEDS: Potassium Chloride Tab 10 MEQ TAB PO SCH (10:12)
[2019-06-07] MEDS: ARIPIPRAZOLE 2 MG PO SCH (10:22)
== END 2019-06-07 12:18 | disposition swing bed (61) | DRG 454 ==
LOC: OPS 06-02 11:32 → MED/SURG 06-03 01:27
PROVIDERS: ADMIT Neurological Surgery; ATTEND Neurological Surgery

== ENCOUNTER 2019-06-13 11:35 | Inpatient (IN) ==
[2019-06-13] MEDS ORDERED: LIDOCAINE W/ SODIUM BICARB 0.5 ML SYR SUBD PRN ×2 (12:58→14:07)
[2019-06-13] MEDS ORDERED: Zolpidem Tab 5 MG TAB PO PRN (12:58)
[2019-06-13] MEDS ORDERED: HYDRALAZINE 20 MG/1 ML IVP PRN (12:58)
[2019-06-13] MEDS ORDERED: CYCLOBENZAPRINE 10 MG TABLET PO PRN (12:58)
[2019-06-13] MEDS ORDERED: CALCIUM CARBONATE 500 MG (TUMS) CHEWABLE TABLET PO PRN (12:58)
[2019-06-13] MEDS ORDERED: DOCUSATE 100 MG CAPSULE PO PRN (12:58)
[2019-06-13] MEDS ORDERED: Nasal Sanitizer POPSWAB ampule 3 AMP (Nozin) PREOP DOSE ENOS SCH (14:15)
[2019-06-13] MEDS: D5-1/2NS + 20mEq KCL 1,000 ML PRIMARY IV SCH (15:55)
[2019-06-13] MEDS: Metoprolol TARTRATE Tab 25 MG TAB PO SCH (20:01)
[2019-06-13] MEDS: Acetaminophen 1000mg Inj 1,000 MG/100 ML VIAL IV PRN (20:33)
[2019-06-14] MEDS: D5-1/2NS + 20mEq KCL 1,000 ML PRIMARY IV SCH ×3 (03:57→21:53)
[2019-06-14 05:04] LABS: BASOPHILS # (AUTO) 0 10*3/UL; BASOPHILS % (AUTO) 0 % (0-1); EOSINOPHILS # (AUTO) 0.34 10*3/UL; EOSINOPHILS % (AUTO) 3.3 % (0-8); Hematocrit [HCT] 35.5 % (37.0-47.0); Hemoglobin [HGB] 11.3 g/dL (12.0-16.0); LYMPHOCYTES # (AUTO) 1.34 10*3/uL; MEAN CORPUSCULAR HGB CONC 31.8 g/dL (33-37); MEAN CORPUSCULAR VOLUME 95.9 FL (81-99); MEAN PLATELET VOLUME 9.6 FL (7.4-12.2); MONOCYTES # (AUTO) 0.61 10*3/UL (0.3-0.8); NEUTROPHILS % (AUTO) 76.7 % (50-80); PLATELET MORPHOLOGY COMMENT NORMAL MORPHOLOGY (NORM); RBC MORPHOLOGY COMMENT NORMAL MORPHOLOGY (NORM); WBC MORPHOLOGY COMMENT NORMAL MORPHOLOGY (NORM)
[2019-06-14 05:11] LABS: BUN/CREATININE RATIO 20.83 (6-20); SERUM ALBUMIN 2.9 g/dL (3.5-4.8)
[2019-06-14] MEDS: Acetaminophen 1000mg Inj 1,000 MG/100 ML VIAL IV PRN ×2 (08:46→19:50)
[2019-06-14] MEDS: Lactated Ringers 1,000 ML PRIMARY IV SCH ×2 (11:05→14:31)
[2019-06-14] MEDS: Metoprolol TARTRATE Tab 25 MG TAB PO SCH ×2 (11:44→21:52)
[2019-06-14] MEDS: PARoxetine Tab 20 MG TAB PO SCH (11:45)
[2019-06-14] MEDS ORDERED: PROPOFOL 10 MG/1 ML (200 MG/20 ML) VIAL IV ONE (12:22)
[2019-06-14] MEDS ORDERED: LANSOPRAZOLE 30 MG SOLUTAB PEG ONE (13:22)
[2019-06-14] MEDS ORDERED: CYCLOBENZAPRINE 10 MG TABLET PO PRN (13:24)
[2019-06-14] MEDS: ONDANSETRON 4 MG/2 ML VIAL IVP PRN ×2 (14:11→22:59)
[2019-06-14] MEDS: LANSOPRAZOLE 30 MG SOLUTAB PEG SCH (21:52)
[2019-06-15 04:48] LABS: BLOOD UREA NITROGEN 16 mg/dL (7-22); BUN/CREATININE RATIO 17.77 (6-20); SERUM ALBUMIN 3.1 g/dL (3.5-4.8)
[2019-06-15] MEDS: Metoprolol TARTRATE Tab 25 MG TAB PO SCH ×2 (08:35→22:54)
[2019-06-15] MEDS: PARoxetine Tab 20 MG TAB PO SCH (08:36)
[2019-06-15] MEDS: LANSOPRAZOLE 30 MG SOLUTAB PEG SCH ×2 (08:37→15:39)
[2019-06-15] MEDS: Acetaminophen 1000mg Inj 1,000 MG/100 ML VIAL IV PRN (09:28)
[2019-06-15] MEDS ORDERED: FUROSEMIDE 20 MG TABLET PO ONE (13:57)
[2019-06-15] MEDS ORDERED: LORazepam 2 MG/1 ML VIAL IVP ONE (14:57)
[2019-06-15 18:39] LABS: BILIRUBIN,URINE NEGATIVE (NEG); CLARITY,URINE CLEAR (CLEAR); COLOR,URINE YELLOW (Y); GLUCOSE, URINE (UA) NEGATIVE (NEG); OCCULT BLOOD,URINE NEGATIVE (NEG); PH,URINE 5.5 (5.0-8.5); PROTEIN,URINE NEGATIVE (NEG); URINE SAMPLE TYPE CATH SPECIMEN; UROBILINOGEN,URINE 0.2 EU/dL (0.2)
[2019-06-15] MEDS: D5-1/2NS + 20mEq KCL 1,000 ML PRIMARY IV SCH (18:39)
[2019-06-15] MEDS: ACETAMINOPHEN 325 MG TABLET PO PRN (19:47)
[2019-06-15] MEDS ORDERED: LANSOPRAZOLE 30 MG SOLUTAB PEG SCH (22:00)
[2019-06-16 04:54] LABS: BASOPHILS # (AUTO) 0.01 10*3/UL; BASOPHILS % (AUTO) 0.1 % (0-1); EOSINOPHILS # (AUTO) 0.19 10*3/UL; EOSINOPHILS % (AUTO) 1.2 % (0-8); Hematocrit [HCT] 38.4 % (37.0-47.0); Hemoglobin [HGB] 12.6 g/dL (12.0-16.0); LYMPHOCYTES # (AUTO) 1.07 10*3/uL; MEAN CORPUSCULAR HGB CONC 32.8 g/dL (33-37); MEAN CORPUSCULAR VOLUME 93.4 FL (81-99); MONOCYTES # (AUTO) 0.99 10*3/UL (0.3-0.8); MONOCYTES % (AUTO) 6.4 % (5-15); NEUTROPHILS % (AUTO) 85.1 % (50-80); RED BLOOD COUNT 4.11 10^6/uL (4.20-5.40)
[2019-06-16 05:03] LABS: BLOOD UREA NITROGEN 15 mg/dL (7-22); BUN/CREATININE RATIO 16.66 (6-20); SERUM ALBUMIN 3.1 g/dL (3.5-4.8)
[2019-06-16 05:16] LABS: PLATELET MORPHOLOGY COMMENT NORMAL MORPHOLOGY (NORM); RBC MORPHOLOGY COMMENT NORMAL MORPHOLOGY (NORM); WBC MORPHOLOGY COMMENT NORMAL MORPHOLOGY (NORM)
[2019-06-16] MEDS ORDERED: FUROSEMIDE 20 MG TABLET PO SCH (07:00)
[2019-06-16] MEDS: LANSOPRAZOLE 30 MG SOLUTAB PEG SCH ×2 (07:46→16:53)
[2019-06-16] MEDS ORDERED: Potassium Chloride Tab 10 MEQ TAB PO SCH (09:00)
[2019-06-16] MEDS: Metoprolol TARTRATE Tab 25 MG TAB PO SCH ×2 (10:56→21:33)
[2019-06-16] MEDS: ACETAMINOPHEN 325 MG TABLET PO PRN (10:57)
[2019-06-16] MEDS: PARoxetine Tab 20 MG TAB PO SCH (10:57)
[2019-06-16 11:35] LABS: HEPATITIS B SURFACE AG Negative (Negative)
[2019-06-16] MEDS: FUROSEMIDE 20 MG TABLET PO SCH (13:07)
[2019-06-17] MEDS: LANSOPRAZOLE 30 MG SOLUTAB PEG SCH ×2 (08:17→16:15)
[2019-06-17] MEDS: FUROSEMIDE 20 MG TABLET PO SCH (08:17)
[2019-06-17] MEDS ORDERED: LEVOTHYROXINE 75 MCG TABLET PO ONE (09:15)
[2019-06-17] MEDS: PARoxetine Tab 20 MG TAB PO SCH (11:32)
[2019-06-17] MEDS: POTASSIUM CHLORIDE 20 MEQ TAB PEG SCH (11:33)
[2019-06-17] MEDS: Metoprolol TARTRATE Tab 25 MG TAB PO SCH ×2 (11:35→21:00)
[2019-06-17] MEDS: ACETAMINOPHEN 325 MG TABLET PO PRN (19:52)
[2019-06-17] MEDS ORDERED: ATORVASTATIN 40 MG TABLET PO SCH (21:00)
[2019-06-18 04:39] LABS: BASOPHILS # (AUTO) 0.03 10*3/UL; BASOPHILS % (AUTO) 0.3 % (0-1); EOSINOPHILS # (AUTO) 0.26 10*3/UL; EOSINOPHILS % (AUTO) 2.5 % (0-8); Hematocrit [HCT] 41.1 % (37.0-47.0); Hemoglobin [HGB] 13.5 g/dL (12.0-16.0); MEAN CORPUSCULAR HGB CONC 32.8 g/dL (33-37); MEAN CORPUSCULAR VOLUME 91.3 FL (81-99); MEAN PLATELET VOLUME 9.8 FL (7.4-12.2); MONOCYTES # (AUTO) 0.79 10*3/UL (0.3-0.8); MONOCYTES % (AUTO) 7.5 % (5-15); NEUTROPHILS # (AUTO) 7.87 10*3/UL; PLATELET MORPHOLOGY COMMENT NORMAL MORPHOLOGY (NORM); RBC MORPHOLOGY COMMENT NORMAL MORPHOLOGY (NORM); WBC MORPHOLOGY COMMENT NORMAL MORPHOLOGY (NORM)
[2019-06-18 04:56] LABS: BLOOD UREA NITROGEN 23 mg/dL (7-22); BUN/CREATININE RATIO 25.55 (6-20)
[2019-06-18] MEDS ORDERED: LEVOTHYROXINE 75 MCG TABLET PO SCH (05:30)
[2019-06-18 05:58] VITALS: TEMP 97.8
[2019-06-18 07:17] VITALS: RESP 24; O2SAT 94
[2019-06-18] MEDS: LANSOPRAZOLE 30 MG SOLUTAB PEG SCH (07:23)
[2019-06-18] MEDS: ONDANSETRON 4 MG/2 ML VIAL IVP PRN (07:35)
[2019-06-18] MEDS: ACETAMINOPHEN 325 MG TABLET PO PRN (07:35)
[2019-06-18 07:56] VITALS: BP 143/47
[2019-06-18] MEDS ORDERED: ASPIRIN 81 MG (BABY) CHEWABLE TABLET PO SCH (09:00)
[2019-06-18] MEDS: POTASSIUM CHLORIDE 20 MEQ TAB PEG SCH (10:46)
[2019-06-18] MEDS: Metoprolol TARTRATE Tab 25 MG TAB PO SCH (10:47)
[2019-06-18] MEDS: FUROSEMIDE 20 MG TABLET PO SCH ×2 (10:47)
[2019-06-18] MEDS: PARoxetine Tab 20 MG TAB PO SCH (10:48)
== END 2019-06-18 11:17 | disposition swing bed (61) | DRG 947 ==
LOC: MED/SURG → OPS 06-14 12:05 → MED/SURG 06-14 13:12
PROVIDERS: ADMIT Family Medicine; ATTEND Family Medicine